=== PATIENT | female | born 1935 | race Caucasian/White ===

== ENCOUNTER 2016-11-26 13:26 | Emergency (ER) | payer OTHER ==
[~2016-11-26] VITALS: Ht 182.9 cm; Wt 90.4 kg
[~2016-11-26 13:26] MED LIST: ALBU1AER INH; ATEN-102 PO; CALC500T21 PO; CARD180C5 PO; CO Q100C PO; LEVO137T2 PO; LUTE20CA PO; MACR100C PO; NITR0.4S SL; OMEP20TA PO; PRAV80TA PO; PROP300T PO; SPIR25TA PO; SYMB80AE INH; TAB-TAB PO; VAGI10TA VAGINAL; WARF2.5T40 PO
[2016-11-26 13:28] VITALS: BP 100/53; PULSE 56; RESP 18; TEMP 97.7; O2SAT 98
[2016-11-26] MEDS ORDERED: WARF-18 PO (13:37)
[2016-11-26] MEDS ORDERED: PROP300T PO (13:37)
[2016-11-26] MEDS ORDERED: VAGI10TA VAGINAL (13:37)
[2016-11-26] MEDS ORDERED: ATEN25TA PO (13:37)
[2016-11-26] MEDS ORDERED: OMEP20TA PO (13:37)
[2016-11-26] MEDS ORDERED: LEVO137T2 PO (13:37)
[2016-11-26] MEDS ORDERED: SPIR25TA PO (13:37)
[2016-11-26] MEDS ORDERED: VENTAER INH (13:37)
[2016-11-26] MEDS ORDERED: DILT180C56 PO (13:37)
[2016-11-26] MEDS ORDERED: PRAV80TA2 PO (13:37)
[2016-11-26] MEDS ORDERED: SYMB80AE INH (13:37)
--- NOTE | 2016-11-26 14:29 | PD ---
HPI Chief Complaint: Respiratory Symptoms Time Seen by Provider: 14:25 Travel History International Travel<30 days: No Contact w/Intl Traveler<30days: No Traveled to known affect area: No History of Present Illness HPI Patient is a 81-year-old female with history of CAD, CHF and COPD presenting with chief complaint of cough and cold. She states for 5 days she's had nasal congestion and a cough with intermittent dyspnea. She states that initially sputum was clear to white over the last several days has had a small amount of yellow sputum. Dyspnea has worsened with some intermittent wheezing, her albuterol has helped. She is on Symbicort daily. She denies any chest pain. She she's had intermittent sore throat. She denies fevers, chills, nausea, vomiting or abdominal pain. She has chronic pedal edema feels like this is actually improved for unusual. Denies any pain in the calves. Denies any dizziness or syncopal episodes. She has received influenza and pneumococcal vaccines recently. PFSH Past Medical History Arthritis: Yes Atrial Fibrillation: Yes Autoimmune Disease: No Heart Rhythm Problems: Yes (AF) Cancer: Yes (Lt. breast) Cardiovascular Problems: Yes (PR, HX ATRIAL FIB ) High Cholesterol: Yes Chest Pain: No Congestive Heart Failure: Yes Cerebrovascular Accident: No Diabetes: No Diminished Hearing: No Endocrine: Yes Gastrointestinal Disorders: Yes (Perforated diverticulum) GERD: Yes Genitourinary: No Headaches: Yes Hepatitis: No Hiatal Hernia: Yes Hypertension: Yes Immune Disorder: No Implanted Vascular Access Dvce: Yes Kidney Stones: No Musculoskeletal: Yes (Arthritis, low back pain) Neurologic: No Psychiatric: No Reproductive: No Respiratory: No Immunizations Current: Yes Migraines: Yes Myocardial Infarction: Yes Radiation Therapy: Yes (Lt. breast) Renal Failure: No Seizures: No Shingles: Yes Thyroid Disease: Yes Ulcer: No Tetanus Vaccination: < 5 Years Influenza Vaccination: Yes ?: Not Past Surgical History Abdominal Surgery: Yes (Hernia X's 3, partial colectomy, colostomy w/ reversal) AICD: No Appendectomy: Yes Body Medical Devices: NONE Cardiac Surgery: No Section: Yes Ear Surgery: No Endocrine Surgery: Yes (Thyroidectomy ) Eye Surgery: No Genitourinary Surgery: Yes (Bladder) Gynecologic Surgery: Yes Hysterectomy: Yes Joint Replacement: Yes (BL knees) Oral Surgery: No Pacemaker: No Thoracic Surgery: No Other Surgery: Yes (Lt. lumpectomy ) Social History Alcohol Use: No Tobacco Use: No Substance Use: No Allergies-Medications (Allergen,Severity, Reaction): Coded Allergies: No Known Allergies (Verified , 11/26/16) Reported Meds & Prescriptions Reported Meds & Active Scripts Active Azithromycin 250 Mg Tab 250 Mg PO DIRECTED Take 2 tabs (500 mg) on day 1 then 1 tab daily x 4 days. Prednisone 20 Mg Tab 40 Mg PO DAILY 5 Days Reported Ventolin Hfa 18 GM Inh (Albuterol Sulfate) 90 Mcg/Act Aer 2 Puff INH Q4-6H PRN Symbicort Inh (Budesonide/Formoterol Fumarate) 80-4.5 Mcg/Act Aero 2 Puff INH Q12HR Diltiazem CD 24 HR 180 Mg Caper 180 Mg PO DAILY Levothyroxine (Levothyroxine Sodium) 137 Mcg Tab 137 Mcg PO DAILY Atenolol 25 Mg Tab 25 Mg PO DAILY Omeprazole 20 Mg Tab 20 Mg PO DAILY Spironolactone 25 Mg Tab 12.5 Mg PO DAILY Warfarin 2.5 Mg Tab 2.5 Mg PO DAILY Propafenone (Propafenone HCl) 300 Mg Tab 300 Mg PO Q8HR Pravastatin 80 Mg Tab 80 Mg PO DAILY Vagifem Vaginal (Estradiol Vaginal) 10 Mcg Vagtab 10 Mcg VAGINAL 2XWEEK Review of Systems Except as stated in HPI: all other systems reviewed are Neg Physical Exam Narrative GENERAL: Well-developed and well-nourished adult female in no acute distress. SKIN: Warm and dry. Good turgor without tenting. HEAD: Normocephalic and atraumatic. EYES: PERRL bilaterally, 5mm. EOMI bilaterally. No injection or icterus present. No proptosis. Lids without edema or erythema. ENT: Nasal mucosa erythematous and edematous without discharge, septum intact and midline. Buccal mucosa pink and moist. Oropharynx free of erythema, tonsillar hypertrophy, masses, swelling, asymmetry and exudates. Uvula midline and airway patent. NECK: Supple, no meningeal signs. Trachea midline, no JVD. No cervical or facial lymphadenopathy. CARDIOVASCULAR: Regular rate and rhythm without murmurs, rubs, clicks or gallops. Radial and posterior tibial pulses 2+ bilaterally. 1+ bilateral pedal edema without discoloration or warmth, chronic and improving per patient. Negative bilateral Homans sign. RESPIRATORY: Scattered rhonchi diffusely without rales or wheezing auscultated. No distress or use of accessory muscles. Speaks in full sentences. No stridor, tripoding or drooling. GASTROINTESTINAL: Non-tender, non-distended. Normal bowel sounds all 4 quadrants. No masses or organomegaly present. MUSCULOSKELETAL: No gait disturbances. Patient freely moving all four extremities spontaneously. Extremities without clubbing, cyanosis, or edema. No obvious deformities. NEUROLOGIC: CN II-XII grossly intact. Awake and alert. Motor grossly within normal limits. Normal speech. PSYCHIATRIC: Appropriate mood and affect; insight and judgment normal. Data Data Last Documented VS Vital Signs Date Time Temp Pulse Resp B/P Pulse Ox O2 Delivery O2 Flow Rate FiO2 11/26/16 14:45 58 18 119/61 100 T-piece 7 11/26/16 13:28 97.7 Orders Chest, Pa & Lat (11/26/16 14:23) Albuterol-Ipratropium Neb (Duoneb Neb) (11/26/16 14:30) Methylprednisolone So Succ Inj (Solumedr (11/26/16 14:30) MDM Medical Decision Making Medical Screen Exam Complete: Yes Emergency Medical Condition: Yes Differential Diagnosis COPD exacerbation versus bronchitis versus pneumonia versus viral syndrome Narrative Course Patient 81-year-old female with a history of CAD, CHF and COPD presenting with cough and cold symptoms for 5 days which has progressively worsened. She is afebrile and nontoxic appearing. Oxygen saturation is 98% on room air and she has increased work of breathing. Scattered rhonchi without rales or wheezes. Chronic pedal edema which is improved by history. She denies chest pain. Patient was given Solu-Medrol and DuoNeb in order chest x-ray which shows some robotic scarring of the left lower lung base and other chronic changes. No evidence of effusion, pulmonary congestion or infiltrate. Patient reports improved symptoms after steroids and breathing treatment. Her lungs are clear to auscultation with decreased breath sounds afterwards and the rhonchi are resolved. Patient given prescription for prednisone and azithromycin and recommend follow-up with PCP in 2-3 days.See discharge paperwork for further instructions. The plan was discussed with the patient who acknowledged their understanding and agreement. Reinforced the follow-up with primary care is critically important. Patient instructed on emergent conditions that should prompt return to ED. Diagnosis Primary Impression: COPD exacerbation Patient Instructions: COPD (Chronic Obstructive Pulmonary Disease) (ED), General Instructions Additional Instructions: Continue home inhalers as needed Take medications as prescribed Lots of fluids stay well-hydrated Recommended rest and avoid overexertion Follow-up PCP in 2-3 days Return to the ED for any acute worsening symptoms Med/Other Pt SpecificInfo: Prescription(s) given Scripts Azithromycin 250 Mg [id number] Mg PO DIRECTED #6 TAB Take 2 tabs (500 mg) on day 1 then 1 tab daily x 4 days. Prov:Valerie Cardozo MD 11/26/16 Prednisone 20 Mg Tab40 Mg PO DAILY 5 Days Prov:Valerie Cardozo MD 11/26/16 Disposition: 01 DISCHARGE HOME Condition: Stable Jack Dudley III Nov 26, 2016 14:29
[2016-11-26] MEDS ORDERED: methylPREDNISolone SOD SUCC 125 MG/2 ML VIAL IM ONE (14:30)
[2016-11-26] MEDS: RESP: ALBUTEROL 2.5 MG/IPRATROPIUM 0.5 MG NEB (SCH) INH (14:33)
[2016-11-26 14:45] VITALS: BP 119/61; PULSE 58; RESP 18; O2SAT 100
--- NOTE | 2016-11-26 15:33 | RADHPO ---
EXAM DATE/TIME: 11/26/2016 14:55 [facility] COMPARISON: CT ABDOMEN & PELVIS W CONTRAST, June 01, 2016, 4:58. CHEST SINGLE AP, September 20, 2013, 9:53. INDICATIONS: Cough. MEDICAL HISTORY: Myocardial infarction. Carcinoma, breast. Hypercholesterolemia. Thyroid disease, Cataracts, AFIB, HTN, Perforated diverticulum, Hiatal hernia, GERD, Arthritis SURGICAL HISTORY: Appendectomy. Hysterectomy. section. Hernia repair, Left breast lumpectomy, Partial colectom y, Colostomy with reversal, bilateral total knee replacements, Thyroidectomy ENCOUNTER: Initial ACUITY: 4 - 6 days PAIN SCORE: 0/10 LOCATION: Bilateral chest FINDINGS: Scattered fibrotic scarring is noted within the left lung base. Mild elevation of the left hemidiaph ragm is noted. There is no acute focal pulmonary infiltrate or pulmonary vascular congestion. The h eart is normal. Degenerative changes and mild scoliosis of the thoracic spine are noted. CONCLUSION: 1. Scattered left basilar fibrotic scarring. 2. No acute focal pulmonary infiltrate or pulmonary vascular congestion. 3. Degenerative changes and mild scoliosis of the thoracic spine. Con Hinton MD on November 26, 2016 at 15:18 Board Certified Radiologist. This report was verified electronically.
[2016-11-26] MEDS ORDERED: AZIT250T3 PO (15:36)
[2016-11-26] MEDS ORDERED: PRED20 PO (15:36)
== END 2016-11-26 16:10 | disposition home or self-care (01) ==
LOC: PHEFT 13:26
DX: J44.1 Chronic obstructive pulmonary disease with (acute) exacerbation (principal); I25.10 Atherosclerotic heart disease of native coronary artery without angina pectoris; I50.9 Heart failure, unspecified; J02.9 Acute pharyngitis, unspecified; I48.91 Unspecified atrial fibrillation; E78.00 Pure hypercholesterolemia, unspecified; K21.9 Gastro-esophageal reflux disease without esophagitis; I10 Essential (primary) hypertension; I25.2 Old myocardial infarction; E07.9 Disorder of thyroid, unspecified
CPT/HCPCS: 71020; 94640; 94664; 96372; 99283; J2930

== ENCOUNTER 2017-08-13 05:32 | Emergency (ER) | payer OTHER ==
[~2017-08-13] VITALS: Ht 182.9 cm; Wt 93.0 kg
[~2017-08-13 05:32] MED LIST changes: -ALBU1AER INH; -ATEN-102 PO; +ATEN25TA PO; +AZIT250T3 PO; -CALC500T21 PO; -CARD180C5 PO; -CO Q100C PO; +DILT180C56 PO; -LUTE20CA PO; -MACR100C PO; -NITR0.4S SL; -PRAV80TA PO; +PRAV80TA2 PO; +PRED20 PO; -TAB-TAB PO; +VENTAER INH; +WARF-18 PO; -WARF2.5T40 PO
[2017-08-13 05:36] VITALS: BP 144/68; PULSE 53; RESP 18; TEMP 97.4; O2SAT 100
[2017-08-13] MEDS ORDERED: DILT0.05 PO (05:58)
--- NOTE | 2017-08-13 06:02 | PD ---
HPI Chief Complaint: Pain: Acute or Chronic Time Seen by Provider: 05:57 Travel History International Travel<30 days: No Contact w/Intl Traveler<30days: No Traveled to known affect area: No History of Present Illness HPI The patient is a 81-year-old female that complains of right upper quadrant pain for a day and a half. She is nauseated and has vomited. She denies any fever. The patient has had an appendectomy but still has her gallbladder. He denies any diarrhea. She has a history of COPD but has not smoked in 30 years. There is no dysuria, frequency or urgency. The patient takes Coumadin for occasional atrial fibrillation. Dr. Medina is her book author. Dr. Cruz Guerrero is her primary care physician. PFS Past Medical History Arthritis: Yes Atrial Fibrillation: Yes Autoimmune Disease: No Heart Rhythm Problems: Yes (AF) Cancer: Yes (Lt. breast) Cardiovascular Problems: Yes (MA, HX ATRIAL FIB ) High Cholesterol: Yes Chest Pain: No Congestive Heart Failure: Yes Cerebrovascular Accident: No Diabetes: No Diminished Hearing: No Endocrine: Yes Gastrointestinal Disorders: Yes (Perforated diverticulum) GERD: Yes Genitourinary: No Headaches: Yes Hepatitis: No Hiatal Hernia: Yes Hypertension: Yes Immune Disorder: No Implanted Vascular Access Dvce: Yes Kidney Stones: No Musculoskeletal: Yes (Arthritis, low back pain) Neurologic: No Psychiatric: No Reproductive: No Respiratory: No Immunizations Current: Yes Migraines: Yes Myocardial Infarction: Yes Radiation Therapy: Yes (Lt. breast) Renal Failure: No Seizures: No Shingles: Yes Thyroid Disease: Yes Ulcer: No Tetanus Vaccination: < 5 Years Influenza Vaccination: Yes ?: Not Menopausal: Yes Past Surgical History Abdominal Surgery: Yes (Hernia X's 3, partial colectomy, colostomy w/ reversal) AICD: No Appendectomy: Yes Body Medical Devices: NONE Cardiac Surgery: No Section: Yes Ear Surgery: No Endocrine Surgery: Yes (Thyroidectomy ) Eye Surgery: No Genitourinary Surgery: Yes (Bladder) Gynecologic Surgery: Yes Hysterectomy: Yes Joint Replacement: Yes (BL knees) Oral Surgery: No Pacemaker: No Thoracic Surgery: No Other Surgery: Yes (Lt. lumpectomy ) Social History Alcohol Use: No Tobacco Use: No Substance Use: No Allergies-Medications (Allergen,Severity, Reaction): Coded Allergies: No Known Allergies (Verified , 08/13/17) Reported Meds & Prescriptions Reported Meds & Active Scripts Active Reported Cephalexin 500 Mg Cap 500 Mg PO Q8H Estrace Vaginal (Estradiol) 0.01% Cream 1 Appl VAGINAL HS Levothyroxine (Levothyroxine Sodium) 125 Mcg Tab 125 Mcg PO DAILY Propafenone (Propafenone HCl) 150 Mg Tab 150 Mg PO Q8HR Diltiazem ER 24 HR 180 Mg Jackson 180 Mg PO DAILY Ventolin Hfa 18 GM Inh (Albuterol Sulfate) 90 Mcg/Act Aer 2 Puff INH Q4-6H PRN Symbicort Inh (Budesonide/Formoterol Fumarate) 80-4.5 Mcg/Act Aero 2 Puff INH Q12HR Atenolol 25 Mg Tab 25 Mg PO DAILY Omeprazole 20 Mg Tab 20 Mg PO DAILY Spironolactone 25 Mg Tab 12.5 Mg PO DAILY Warfarin 2.5 Mg Tab 2.5 Mg PO DAILY Pravastatin 80 Mg Tab 80 Mg PO DAILY Review of Systems Except as stated in HPI: all other systems reviewed are Neg Physical Exam Narrative GENERAL: The patient is alert, oriented 3 in moderate distress with her right upper quadrant discomfort. Her vital signs show heart rate of 53 and blood pressure 144/68 but are otherwise normal. SKIN: Focused skin assessment warm/dry. HEAD: Atraumatic. Normocephalic. EYES: Pupils equal and round. No scleral icterus. No injection or drainage. ENT: No nasal bleeding or discharge. Mucous membranes pink and moist. NECK: Trachea midline. No JVD. CARDIOVASCULAR: Regular rate and rhythm. No murmur appreciated. RESPIRATORY: No accessory muscle use. Clear to auscultation. Breath sounds equal bilaterally. GASTROINTESTINAL: Abdomen soft, with tenderness in the right upper quadrant to direct palpation, nondistended. Hepatic and splenic margins not palpable. No guarding or rebound but Nobles sign is positive. MUSCULOSKELETAL: No obvious deformities. No clubbing. No cyanosis. No edema. NEUROLOGICAL: Awake and alert. No obvious cranial nerve deficits. Motor grossly within normal limits. Normal speech. PSYCHIATRIC: Appropriate mood and affect; insight and judgment normal. Data Data Last Documented VS Vital Signs Date Time Temp Pulse Resp B/P (MAP) Pulse Ox O2 Delivery O2 Flow Rate FiO2 08/13/17 06:29 56 16 146/71 (96) 100 Room Air 08/13/17 05:36 97.4 Orders Orders Complete Blood Count With Diff (08/13/17 06:03) Comprehensive Metabolic Panel (08/13/17 06:03) Lipase (08/13/17 06:03) Prothrombin Time / Inr (Pt) (08/13/17 06:03) Urinalysis - C+S If Indicated (08/13/17 06:03) Iv Access Insert/Monitor (08/13/17 06:03) Ecg Monitoring (08/13/17 06:03) Oximetry (08/13/17 06:03) Morphine Inj (Morphine Inj) (08/13/17 06:15) Ondansetron Inj (Zofran Inj) (08/13/17 06:15) Sodium Chlor 0.9% 1000 Ml Inj (Ns 1000 M (08/13/17 06:03) Sodium Chloride 0.9% Flush (Ns Flush) (08/13/17 06:15) Electrocardiogram (08/13/17 06:03) Troponin I (08/13/17 06:03) Chest, Pa & Lat (08/13/17 06:03) Us Abdomen Gallbladder (08/13/17 07:00) Labs Laboratory Tests Test 08/13/17 06:00 White Blood Count 8.0 TH/MM3 Red Blood Count 4.25 MIL/MM3 Hemoglobin 12.6 GM/DL Hematocrit 38.5 % Mean Corpuscular Volume 90.6 FL Mean Corpuscular Hemoglobin 29.7 PG Mean Corpuscular Hemoglobin Concent 32.8 % Red Cell Distribution Width 14.2 % Platelet Count 245 TH/MM3 Mean Platelet Volume 8.8 FL Neutrophils (%) (Auto) 77.4 % Lymphocytes (%) (Auto) 16.9 % Monocytes (%) (Auto) 4.6 % Eosinophils (%) (Auto) 0.5 % Basophils (%) (Auto) 0.6 % Neutrophils # (Auto) 6.2 TH/MM3 Lymphocytes # (Auto) 1.4 TH/MM3 Monocytes # (Auto) 0.4 TH/MM3 Eosinophils # (Auto) 0.0 TH/MM3 Basophils # (Auto) 0.0 TH/MM3 CBC Comment DIFF FINAL Differential Comment Prothrombin Time 28.3 SEC Prothromb Time International Ratio 2.5 RATIO Blood Urea Nitrogen 19 MG/DL Creatinine 0.99 MG/DL Random Glucose 124 MG/DL Total Protein 7.2 GM/DL Albumin 3.5 GM/DL Calcium Level 10.1 MG/DL Alkaline Phosphatase 77 U/L Aspartate Amino Transf (AST/SGOT) 19 U/L Alanine Aminotransferase (ALT/SGPT) 21 U/L Total Bilirubin 0.6 MG/DL Sodium Level 137 MEQ/L Potassium Level 4.3 MEQ/L Chloride Level 104 MEQ/L Carbon Dioxide Level 26.0 MEQ/L Anion Gap 7 MEQ/L Estimat Glomerular Filtration Rate 54 ML/MIN Troponin I LESS THAN 0.02 NG/ML Lipase 233 U/L MDM Medical Decision Making Medical Screen Exam Complete: Yes Emergency Medical Condition: Yes Medical Record Reviewed: Yes Interpretation(s) The chest x-ray is normal. The CBC is normal. The EKG shows sinus bradycardia with rate of [address] elevation or depression. Differential Diagnosis Cholecystitis, cholelithiasis with colic, colitis, pyelonephritis, pancreatitis , electrolyte disorder, dehydration, renal insufficiency Narrative Course It is now 0705 and the patient is transferred to Dr. Azevedo. Shamar Smith MD Aug 13, 2017 06:02
[2017-08-13] MEDS ORDERED: SODIUM CHLOR 0.9% 1000 ML INJ 1,000 ML IV SCH (06:03)
[2017-08-13] MEDS ORDERED: ESTR42.5V VAGINAL (06:03)
[2017-08-13] MEDS ORDERED: CEPH500C PO (06:03)
[2017-08-13] MEDS ORDERED: PROP150T PO (06:03)
[2017-08-13] MEDS ORDERED: LEVO125T4 PO (06:03)
[2017-08-13] MEDS ORDERED: ONDANSETRON HCL 4 MG/2 ML VIAL IVP ONE (06:15)
[2017-08-13] MEDS ORDERED: SODIUM CHLORIDE 0.9% FLUSH 10 ML FLUSH IV FLUSH PRN (06:15)
[2017-08-13] MEDS ORDERED: MORPHINE SULFATE 4 MG/ML INJ IV PUSH ONE (06:15)
[2017-08-13 06:29] VITALS: BP 146/71; PULSE 56; RESP 16; O2SAT 100
[2017-08-13 06:32] LABS: AUTOMATED NEUTROPHIL # 6.2 TH/MM3 (1.8-7.7); BASOPHIL % 0.6 % (0.0-2.0); EOSINOPHIL % 0.5 % (0.0-4.0); HEMATOCRIT 38.5 % (35.0-46.0); HEMO FLAGS DIFF FINAL; LYMPH % 16.9 % (9.0-44.0); LYMPHOCYTE # 1.4 TH/MM3 (1.0-4.8); MEAN CELL VOLUME 90.6 FL (80.0-100.0); MEAN CORPUSCULAR HEMOGLOBIN 29.7 PG (27.0-34.0); MEAN CORPUSCULAR HGB CONC 32.8 % (32.0-36.0); MONO % 4.6 % (0.0-8.0); NEUT % 77.4 % (16.0-70.0); PLATELET COUNT 245 TH/MM3 (150-450); RED BLOOD COUNT 4.25 MIL/MM3 (4.00-5.30); RED CELL DISTRIBUTION WIDTH 14.2 % (11.6-17.2)
[2017-08-13 06:40] LABS: CHLORIDE 104 MEQ/L (98-107); POTASSIUM 4.3 MEQ/L (3.5-5.1); SODIUM (NA) 137 MEQ/L (136-145)
[2017-08-13 06:43] LABS: INTERNATIONAL NORMALIZED RATIO 2.5 RATIO; PROTHROMBIN TIME - PATIENT 28.3 SEC (9.8-11.6)
[2017-08-13 06:44] LABS: ANION GAP 7 MEQ/L (5-15); BLOOD UREA NITROGEN 19 MG/DL (7-18)
[2017-08-13 06:47] LABS: ALT (GPT) 21 U/L (10-53); AST (GOT) 19 U/L (15-37); GLOMERULAR FILTRATION RATE 54 ML/MIN (>89)
[2017-08-13 06:48] LABS: TOTAL BILIRUBIN ADULT 0.6 MG/DL (0.2-1.0)
[2017-08-13 06:50] LABS: ALKALINE PHOSPHATASE 77 U/L (45-117)
--- NOTE | 2017-08-13 06:55 | RADRPT ---
EXAM DATE/TIME: 08/13/2017 06:30 [facility] COMPARISON: CHEST PA & LAT, November 26, 2016, 14:55. INDICATIONS : Chest pain. MEDICAL HISTORY : Diverticulitis. Gastroesophageal reflux disease. Hernia, hiatal. Hernia, umbilical.Hypertension SURGICAL HISTORY : Appendectomy. Hysterectomy. section.Multiple hernia repairs. Sigmoid resection, Colostomy res ection. Bladder suspension ENCOUNTER: Initial ACUITY: 1 day PAIN SCORE: 5/10 LOCATION: Bilateral chest FINDINGS: PA and lateral views of the chest demonstrate the lungs to be symmetrically aerated without evidence of mass, infiltrate or effusion. The cardiomediastinal contours are unremarkable. Osseous structure s are intact. CONCLUSION: Normal examination. Karen Edward MD on August 13, 2017 at 6:52 Board Certified Radiologist. This report was verified electronically.
[2017-08-13] MEDS ORDERED: IOHEXOL 350 MG/ML 10 ML VIAL (for RAD DIAG) IVCONTRAST ONE (07:15)
[2017-08-13 07:35] VITALS: BP 140/68; PULSE 64; RESP 16; O2SAT 98
--- NOTE | 2017-08-13 07:36 | RADRPT ---
EXAM DATE/TIME: 08/13/2017 07:04 [facility] COMPARISON: CT ABDOMEN & PELVIS W CONTRAST, June 01, 2016, 4:58. INDICATIONS : Abdominal pain. IV CONTRAST: 96 cc Omnipaque 350 (iohexol) IV ORAL CONTRAST: No oral contrast ingested. RADIATION DOSE: 13.27 CTDIvol (mGy) MEDICAL HISTORY : Hernia. Carcinoma, breast. Congestive heart failure.Afib, Gerd, Hypertension SURGICAL HISTORY : Hysterectomy. Appendectomy.Colostomy.Bladder reverse ENCOUNTER: Initial ACUITY: 1 day PAIN SCALE: 7/10 LOCATION: Right abdominal TECHNIQUE: Volumetric scanning of the abdomen and pelvis was performed. Using automated exposure control and ad justment of the mA and/or kV according to patient size, radiation dose was kept as low as reasonably achievable to obtain optimal diagnostic quality images. DICOM format image data is available electro nically for review and comparison. FINDINGS: LOWER LUNGS: The visualized lower lungs are clear. LIVER: The liver is normal in morphology and attenuation. The gallbladder is greatly distended without evide nce of stones or wall thickening. Stable prominence of the common bile duct measuring 8 mm. No eviden ce of distal obstructing lesion. SPLEEN: Normal size without lesion. PANCREAS: Within normal limits. KIDNEYS: Normal N. size and attenuation with well-circumscribed benign-appearing cysts seen bilaterally. No ev idence of stones or concerning mass. ADRENAL GLANDS: Within normal limits. VASCULAR: Scattered atherosclerosis. No evidence of aneurysm. BOWEL/MESENTERY: There is a large amount of stool identified within the colon. No evidence of focal wall thickening or inflammatory change. The no abnormalities identified adjacent to the suture line within the sigmoid colon. No evidence of bowel obstruction. ABDOMINAL WALL: There is a stable appearance of a large well-circumscribed uncomplicated appearing fluid collection i dentified just deep to the rectus musculature and anterior to the abdominal cavity measuring 17.8 x 9 .2 x 18.4 cm, stable in size. Mesh clips are identified along the posterior margins of the fluid stephany ection. RETROPERITONEUM: There is no lymphadenopathy. BLADDER: No wall thickening or mass. REPRODUCTIVE: Surgically absent.. INGUINAL: There is no lymphadenopathy or hernia. MUSCULOSKELETAL: Within normal limits for patient age. CONCLUSION: 1. No evidence of bowel obstruction or inflammatory process within the abdomen or pelvis. 2. Stable to slight progressive distention of the gallbladder without visible stones. The common bile duct measures 8 mm. No obstructing lesion is identified in the region of the pancreatic head. 3. Stable appearance of a superficial fluid collection seen adjacent to an area of mesh repair.. Karen Edward MD on August 13, 2017 at 7:26 Board Certified Radiologist. This report was verified electronically.
--- NOTE | 2017-08-13 08:14 | EKG ---
Date Performed: 08/13/2017 Time Performed: 06:22:18 PTAGE: 81 years EKG: SINUS BRADYCARDIA POSSIBLE RIGHT VENTRICULAR CONDUCTION DELAY BORDERLINE ECG PREVIOUS TRACING : 05/19/2015 07.15 No significant change from previous tracing noted. DOCTOR: Austen Barrera Interpretating Date/Time 08/13/2017 08:14:10
--- NOTE | 2017-08-13 08:17 | RADRPT ---
EXAM DATE/TIME: 08/13/2017 07:53 [facility] COMPARISON: CT ABDOMEN & PELVIS W CONTRAST, August 13, 2017, 7:04. INDICATIONS : Right upper quadrant pain. MEDICAL HISTORY : Myocardial infarction. Congestive heart failure. Hypercholesterolemia. Thyroid disease. Bilateral cat aracts. Dentures. Syncope. Headache. Atrial fibrillation. Hypertension. Hiatal hernia. Gastroesophage al reflux disease. Arthritis. Breast cancer. Raditation therapy. SURGICAL HISTORY : Appendectomy. Hysterectomy. section. Hernia repair. Bilateral knee replacement. Thyroidectom y. Left lumpectomy. ENCOUNTER: Initial ACUITY: 2 days PAIN SCORE: 5/10 LOCATION: Right upper quadrant MEASUREMENTS: LIVER: 17.0 cm length COMMON DUCT: 2 mm RIGHT KIDNEY: 11.9 x 3.9 x 6.0 cm FINDINGS: LIVER: Normal echotexture without focal lesion or ductal dilatation. COMMON DUCT: No intraluminal mass or stone visualized. Although the measurements of the common bile duct of 2 mm is seen within the region of the hepatic hilum comparison CT demonstrated progressive dilation of the more distal portions of the duct up to a maximum measurement of 8 mm. GALLBLADDER: The gallbladder is greatly distended with layering sludge and mild wall thickening. No tenderness was noted by the [employer] technician while imaging over this area. There is a 7 mm echogenic focus identified adj acent to the gallbladder wall within the sludge. No clear shadowing is seen on ultrasound. This may r epresent a small stone versus a small gallbladder polyp. Given the lack of shadowing favor a polyp. PANCREAS: The visualized portions are within normal limits. RIGHT KIDNEY: Benign renal cyst. Extrarenal pelvis is noted on both ultrasound and comparison CT. CONCLUSION: Given the distention of the gallbladder, mild wall thickening and layering sludge as well as the bryon ent's presentation with right upper quadrant pain this is concerning for chronic gallbladder dysfunct ion. The echogenic focus identified on the ultrasound may represent a small stone versus polyp. No st ones were visualized within the pancreatic head. Karen Edward MD on August 13, 2017 at 8:08 Board Certified Radiologist. This report was verified electronically.
[2017-08-13 08:39] LABS: BLOOD, URINE NEG (NEG); GLUCOSE,URINE NEG (NEG); KETONE, URINE NEG (NEG); NITRITE,URINE NEG (NEG)
[2017-08-13 08:41] LABS: METHOD OF COLLECTION CLEAN CATCH; RBC, URINE 0-3 /hpf (0-3); SQUAMOUS EPITHELIAL CELL URINE 0-5 /hpf (0-5); URINE COLOR YELLOW (YELLW/STRAW)
[2017-08-13 08:42] LABS: COMMENT (UR) CULT NOT INDICATED; CULTURE IF INDICATED CULT NOT INDICATED
[2017-08-13 08:50] VITALS: BP 142/67; PULSE 59; RESP 16; O2SAT 98
--- NOTE | 2017-08-13 08:55 | PD ---
Physical Exam Narrative GENERAL: Well-nourished, well-developed patient. SKIN: Warm and dry. HEAD: Normocephalic and atraumatic. EYES: No injection or drainage. ENT: No nasal drainage noted. NECK: Supple, trachea midline. CARDIOVASCULAR: Regular rate and rhythm RESPIRATORY: no increased effort. No accessory muscle use. GASTROINTESTINAL: Abdomen soft, ttp diffusely with deep palpation, nondistended. EXTREMITIES: No edema. NEUROLOGICAL: Awake and alert. Motor and sensory grossly within normal limits. Normal speech. Data Data Last Documented VS Vital Signs Date Time Temp Pulse Resp B/P (MAP) Pulse Ox O2 Delivery O2 Flow Rate FiO2 08/13/17 06:29 56 16 146/71 (96) 100 Room Air 08/13/17 05:36 97.4 Orders Orders Complete Blood Count With Diff (08/13/17 06:03) Comprehensive Metabolic Panel (08/13/17 06:03) Lipase (08/13/17 06:03) Prothrombin Time / Inr (Pt) (08/13/17 06:03) Urinalysis - C+S If Indicated (08/13/17 06:03) Iv Access Insert/Monitor (08/13/17 06:03) Ecg Monitoring (08/13/17 06:03) Oximetry (08/13/17 06:03) Morphine Inj (Morphine Inj) (08/13/17 06:15) Ondansetron Inj (Zofran Inj) (08/13/17 06:15) Sodium Chlor 0.9% 1000 Ml Inj (Ns 1000 M (08/13/17 06:03) Sodium Chloride 0.9% Flush (Ns Flush) (08/13/17 06:15) Electrocardiogram (08/13/17 06:03) Troponin I (08/13/17 06:03) Chest, Pa & Lat (08/13/17 06:03) Us Abdomen Gallbladder (08/13/17 07:00) Ct Abd/Pel W Iv Contrast(Rout) (08/13/17 ) Iohexol 350 Inj (Omnipaque 350 Inj) (08/13/17 07:15) Labs Laboratory Tests Test 08/13/17 06:00 08/13/17 08:30 White Blood Count 8.0 TH/MM3 Red Blood Count 4.25 MIL/MM3 Hemoglobin 12.6 GM/DL Hematocrit 38.5 % Mean Corpuscular Volume 90.6 FL Mean Corpuscular Hemoglobin 29.7 PG Mean Corpuscular Hemoglobin Concent 32.8 % Red Cell Distribution Width 14.2 % Platelet Count 245 TH/MM3 Mean Platelet Volume 8.8 FL Neutrophils (%) (Auto) 77.4 % Lymphocytes (%) (Auto) 16.9 % Monocytes (%) (Auto) 4.6 % Eosinophils (%) (Auto) 0.5 % Basophils (%) (Auto) 0.6 % Neutrophils # (Auto) 6.2 TH/MM3 Lymphocytes # (Auto) 1.4 TH/MM3 Monocytes # (Auto) 0.4 TH/MM3 Eosinophils # (Auto) 0.0 TH/MM3 Basophils # (Auto) 0.0 TH/MM3 CBC Comment DIFF FINAL Differential Comment Prothrombin Time 28.3 SEC Prothromb Time International Ratio 2.5 RATIO Blood Urea Nitrogen 19 MG/DL Creatinine 0.99 MG/DL Random Glucose 124 MG/DL Total Protein 7.2 GM/DL Albumin 3.5 GM/DL Calcium Level 10.1 MG/DL Alkaline Phosphatase 77 U/L Aspartate Amino Transf (AST/SGOT) 19 U/L Alanine Aminotransferase (ALT/SGPT) 21 U/L Total Bilirubin 0.6 MG/DL Sodium Level 137 MEQ/L Potassium Level 4.3 MEQ/L Chloride Level 104 MEQ/L Carbon Dioxide Level 26.0 MEQ/L Anion Gap 7 MEQ/L Estimat Glomerular Filtration Rate 54 ML/MIN Troponin I LESS THAN 0.02 NG/ML Lipase 233 U/L Urine Collection Type CLEAN CATCH Urine Color YELLOW Urine Turbidity CLEAR Urine pH 7.0 Urine Specific [place] 1.017 Urine Protein NEG mg/dL Urine Glucose (UA) NEG mg/dL Urine Ketones NEG mg/dL Urine Occult Blood NEG Urine Nitrite NEG Urine Bilirubin NEG Urine Leukocyte Esterase NEG Urine RBC 0-3 /hpf Urine Squamous Epithelial Cells 0-5 /hpf Microscopic Urinalysis Comment CULT NOT INDICATED Urine Collection Time 08:30 MDM Supervised Visit with REGGIE: No Interpretation(s) CBC & BMP Diagram 08/13/17 06:00 Total Protein 7.2, Albumin 3.5, Calcium Level 10.1, Alkaline Phosphatase 77, Aspartate Amino Transf (AST/SGOT) 19, Alanine Aminotransferase (ALT/SGPT) 21, Total Bilirubin 0.6 Gallbladder ultrasound shows chronic gallbladder dysfunction per radiology report, patient has no leukocytosis or fever and pain has improved CT scan abdomen pelvis shows no signs of cholecystitis per radiology report Narrative Course Signed over to me to follow ultrasound and CAT scan and reevaluate Imaging shows chronic gallbladder dysfunction. Patient's pain is improved. She is wanting to go home. Advise close follow-up with primary for surgical clearance and surgery referral for possible gallbladder removal as an outpatient. She understands that she has worsening pain, fever, vomiting she needs to return for repeat evaluation. Diagnosis Primary Impression: Abdominal pain Qualified Codes: R10.11 - Right upper quadrant pain Patient Instructions: General Instructions Additional Instruction: tylenol as needed, follow with primary on Tuesday for recheck and surgery referral, return as needed Med/Other Pt SpecificInfo: No Change to Meds Disposition: 01 DISCHARGE HOME Condition: Stable Lexis Shukla MD Aug 13, 2017 08:55
== END 2017-08-13 09:28 | disposition home or self-care (01) ==
LOC: PHED 05:32
DX: R10.11 Right upper quadrant pain (principal); K82.8 Other specified diseases of gallbladder; R11.2 Nausea with vomiting, unspecified; R94.31 Abnormal electrocardiogram [ECG] [EKG]; I10 Essential (primary) hypertension; E07.9 Disorder of thyroid, unspecified; E78.00 Pure hypercholesterolemia, unspecified; I25.2 Old myocardial infarction; Z79.01 Long term (current) use of anticoagulants; Z87.09 Personal history of other diseases of the respiratory system; Z86.79 Personal history of other diseases of the circulatory system; Z87.39 Personal history of other diseases of the musculoskeletal system and connective tissue; Z85.3 Personal history of malignant neoplasm of breast; Z87.19 Personal history of other diseases of the digestive system; Z86.69 Personal history of other diseases of the nervous system and sense organs
CPT/HCPCS: 71020; 74177; 76705; 80053; 81001; 83690; 84484; 85025; 85610; 93005; 96361; 96374; 96375; 99285; J2270; J2405; J7030; Q9967